=== PATIENT | female | born 1980 ===

== ENCOUNTER 2018-02-14 16:09 | Emergency (ER) | payer MEDICAID ==
[2018-02-14 17:10] VITALS: BMI 33.7
--- NOTE | 2018-02-14 18:31 | OBHP ---
Datetime: 02/14/2018 17:07 IP Adm Impression: , intrauterine IP Admit Plan: Observation/Evaluation IP Admit Plan Other: Discharge to ED Admit Comment, IP Provider: Pt is a 37 yo f , 21.4 week present to [facility] due to vaginal bleedi ng. Pt state bleeding started 2 days ago after she was having constant coughs. Pt also state that she have been having abdominal pressure and urine urgency. Her PCP gave her Loratadine and did not work. Pt also state she felt feverish but denies nausea, vomiting, diarrhea, constipation, Pt denies chest pain sob, dysuria. [facility] ( next appointment 22 dic) MED: PNV PMH none PSH: cholesystectomy OBGYN: 4 NVD, 1 SAB FH: not contributary social denies smoke,drink drug use 17:00 Assessment and Plan Pt is a 37 yo f , 21.4 week present to [facility] due to vaginal bleeding. Fetus Heart sound noted and reassuring Cervix closed, no blood noted upon examination + LEFT CVA tenderness + For Calf tenderness UA and UC ordered to R/O UTI LEFT leg U/S r/o dvt Pt is cleared by OBGYN, Patient will be sent to ER for treatment of Cough with LEFT CVA and Calf t enderness. Miscarriage Precaution given: if patient start having bleeding, increase abd pain, discharge, or d ecrease movement to Go to ER. Domingo Lees PGY1 OB Hospitalist Addendum: Pt seen and examined by me. Agree w/ above. 37 yo at 21+5 wks w / c/o coughing for days and then had VB x 2 days, noticed passing clots today, denies LOF and reports FM. Pt reports that she was rx'd loratadine by clinic doc for the cough. Pt denies dysuria but rep orts urgency to urinate a lot/ On exam, pt is coughing on and off. FH in 160's Spec: brown d/c in v lexy. Cx is closed/ thick/ high. Resident elicited left calf tenderness. Will send ua and cx. Pt sent down to ED for eval of cough and left calf tenderness. (ES) Pelvic Type - PN: Not Done Extremities - PN: Abnormal Abdomen - PN: Normal Back - PN: Normal Breast - PN: Not Done Lungs - PN: Normal Heart - PN: Normal Thyroid - PN: Normal Neurologic - PN: Normal HEENT - PN: Normal General - PN: Normal FHR - Baseline A Provider: 160 Comments, ACOG Physical Exam: Pt is not in acute distress heart s1/s2 heard no extra heart sound lung clear abd nontender bs+ LEFT CVA tenderness +for calf tenderness Cervix closed, no blood noted. Gestation - Est Wks by US: 21.4 EGA AdmitDate IP: 21.4 Vital Signs Provider: Reviewed; Within Normal Limits IP Chief Complaint: Vaginal bleeding Dilatation, Provider: 0 Effacement, Provider: 0 Station, Provider: 0 Genitourinary Exam: Normal DTRs - PN: Normal
--- NOTE | 2018-02-14 18:34 | OBDCSUM ---
Datetime: 02/14/2018 18:14 Discharged to, Provider: Home Follow up at, Provider: [facility] Disch Instr Activity: Normal activity Disch Instr Diet: Regular Discharge Instructions, Provider: Routine instructions given Discharge Diagnosis, Provider: Antepartum Bleeding Discharge Time: 02/14/2018 18:14 Follow up in weeks, Provider: 02/26/2018 Disch Referrals: None Discharge Comment, Provider: Pt discharged to the ED for further eval of cough and left calf tendern ess.
[2018-02-14 18:40] VITALS: BP 119/75; PULSE 100; RESP 16; TEMP 98.5; O2SAT 99
[2018-02-14 19:05] LABS: SQUAMOUS EPITHIAL 3 /hpf (0-5); URINE BACTERIA RARE (<OCC); URINE BILIRUBIN NEGATIVE (NEGATIVE); URINE BLOOD MODERATE (NEGATIVE); URINE CLARITY SLIGHTY-CLOUDY (Clear); URINE COLOR YELLOW (YELLOW); URINE GLUCOSE (UA) NEG (NEGATIVE); URINE LEUKOCYTE ESTERASE NEG Leu/uL (Negative); URINE PROTEIN 30 mg/dL (NEGATIVE); URINE UROBILINOGEN 0.2-1.0 mg/dL (0.2-1.0)
--- NOTE | 2018-02-14 19:19 | ED PDOC ---
HPI: Influenza Time Seen by Provider: 02/14/18 18:58 Chief Complaint: Cough, Cold, Congestion Chief Complaint (Provider): cough, congestion History Per: Patient Exam Limitations: no limitations Have you had recent travel within the past 21 days to any of: No Onset/Duration Of Symptoms: Days Risk factors for flu complications: Yes: Additional complaint(s):: 37 y/o F with no significant PMH who presents for cough and nasal congestion for the past 4 days. Pt states that she began having a cough and sore throat about 4 days ago. She then had fevers up to 103F that began 3 days ago. She went to an ER in [place] 2 days ago at which time she was given Flonase and Loratadine. She states that she does not feel any significant improvement in her symptoms. She continues coughing, non-productive. She is having trouble swallowing but has been drinking water. She also noticed some vaginal spotting since yesterday and was just seen by OB and cleared for further evaluation in the main ER. Past Medical History Reviewed: Historical Data, Nursing Documentation, Vital Signs Vital Signs: Last Vital Signs Temp 98.5 F 02/14/18 18:37 Pulse 100 H 02/14/18 18:37 Resp 16 02/14/18 18:37 BP 119/75 02/14/18 18:37 Pulse Ox 99 02/14/18 18:37 - Medical History PMH: No Chronic Diseases - Surgical History Surgical History: Cholecystectomy - Family History Family History: States: Unknown Family Hx - Living Arrangements Living Arrangements: With Family - Immunization History Hx Influenza Vaccination: No - Home Medications Home Medications: Ambulatory Orders Medication Instructions Recorded Acetaminophen [Acetaminophen Extra 2 tab PO Q6 PRN #24 tablet 02/14/18 Strength] - Allergies Allergies/Adverse Reactions: Allergies Allergy/AdvReac Type Severity Reaction Status Date / Time latex Allergy RASH Verified 02/14/18 17:11 Review of Systems Constitutional: Positive for: Fever, Malaise. Negative for: Chills ENT: Positive for: Nose Discharge, Nose Congestion, Throat Pain. Negative for: Ear Pain Cardiovascular: Negative for: Chest Pain Respiratory: Negative for: Cough, Shortness of Breath Gastrointestinal: Negative for: Nausea, Vomiting Physical Exam - Reviewed Nursing Documentation Reviewed: Yes Vital Signs Reviewed: Yes - Physical Exam Appears: Positive for: Uncomfortable ENT: Positive for: TM Is/Are (occluded by cerumen B/L), Nasal Congestion, Pharyngeal Erythema (mild). Negative for: Tonsillar Exudate Neck: Positive for: Normal Cardiovascular/Chest: Positive for: Regular Rate, Rhythm Respiratory: Positive for: Normal Breath Sounds Lymphatic: Positive for: Normal Exam Neurologic/Psych: Positive for: Alert, Oriented Medical Decision Making Medical Decision Making: Rapid flu Rapid strep 20:05: pt endorsed to [facility] pending flu and strep results. - ECG O2 Sat by Pulse Oximetry: 99 Disposition - Clinical Impression Clinical Impression: Upper respiratory infection, viral - Patient ED Disposition Is Patient to be Admitted: Transfer of Care - Disposition Disposition Time: 20:05 Condition: FAIR Prescriptions: Acetaminophen [Acetaminophen Extra Strength] 2 tab PO Q6 PRN #24 tablet PRN Reason: Sore Throat Instructions: Viral Upper Respiratory Infection, Adult (DC) Forms: [facility] ED School/Work Excuse Print Language: SETS[place]
--- NOTE | 2018-02-14 20:13 | ED PDOC ---
- ECG O2 Sat by Pulse Oximetry: 99 - Progress ED Course And Treament: influenza a/b neg rapid strep neg Disposition - Clinical Impression Clinical Impression: Upper respiratory infection, viral - POA Present On Arrival: None - Disposition Disposition: Routine/Home Disposition Time: 20:12 Condition: FAIR Prescriptions: Acetaminophen [Acetaminophen Extra Strength] 2 tab PO Q6 PRN #24 tablet PRN Reason: Sore Throat Instructions: Viral Upper Respiratory Infection, Adult (DC) Forms: [facility] ED School/Work Excuse Print Language: ROMANIAN
== END 2018-02-14 20:22 | disposition home or self-care (01) ==
LOC: H.EROB2 16:09 → H.ER 16:09
DX: O99.512 Diseases of the respiratory system complicating pregnancy, second trimester (principal); J11.1 Influenza due to unidentified influenza virus with other respiratory manifestations; O46.91 Antepartum hemorrhage, unspecified, first trimester; Z3A.21 21 weeks gestation of pregnancy